=== PATIENT | male | born 1975 | race Two or more races ===

== ENCOUNTER 2024-09-26 11:51 | Emergency (ER) | payer OTHER ==
[~2024-09-26] VITALS: Ht 180.3 cm; Wt 92.5 kg
[2024-09-26] MEDS ORDERED: BUPROPION XL450 MG PO (12:11)
[2024-09-26] MEDS ORDERED: UCERIS9 MG (12:11)
[2024-09-26] MEDS ORDERED: BUSPIRONE HCL7.5 MG PO (12:12)
[2024-09-26] MEDS ORDERED: EZALLOR SPRINKL20 MG PO (12:13)
[2024-09-26] MEDS ORDERED: DIOVAN160 M1 PO (12:13)
[2024-09-26] MEDS ORDERED: TESTIM5 GM (12:14)
[2024-09-26] MEDS ORDERED: MOUNJARO15 MG/0.5 SQ (12:14)
[2024-09-26] MEDS ORDERED: PRILOSEC OTC20 MG PO (12:15)
[2024-09-26 13:30] LABS: HEMATOCRIT 43.7 % (39.0-48.0); HEMOGLOBIN 15.1 g/dL (13-16.00); MEAN CELL VOLUME 83.6 fL (80.0-100.00); MEAN CORPUSCULAR HGB CONC 34.7 g/dl (32.0-36.0); PLATELET COUNT 277 K/uL (150-450); RED BLOOD COUNT 5.23 M/uL (4.00-6.00); RED CELL DISTRIBUTION WIDTH 13.9 % (11.5-14.5)
== END 2024-09-26 14:27 | disposition home or self-care (01) ==
LOC: ER 11:53
PROVIDERS: General Practice
DX: B34.9 Viral infection, unspecified (principal); R53.81 Other malaise; Z20.822 Contact with and (suspected) exposure to COVID-19; I10 Essential (primary) hypertension; Z91.018 Allergy to other foods